=== PATIENT | female | born 1970 | race Caucasian/White ===

== ENCOUNTER 2019-06-09 09:14 | Outpatient (CLI) | payer MEDICARE ==
[2019-06-09] MEDS ORDERED: INSU100C SQ-INSULIN (09:48)
[2019-06-09] MEDS ORDERED: LISI1TAB19 PO (09:48)
[2019-06-09] MEDS ORDERED: BIOT10TA PO (09:48)
[2019-06-09] MEDS ORDERED: ATOR10TA9 PO (09:48)
[2019-06-09] MEDS ORDERED: FLUO40CA2 PO (09:48)
[2019-06-09] MEDS ORDERED: LANS15CA5 PO (09:48)
[2019-06-09 10:34] LABS: BASOPHILS # (AUTO) 0.07 x10^3/uL (0-0.1); BASOPHILS % (AUTO) 1 % (0-1); EOSINOPHILS # (AUTO) 0.39 x10^3/uL (0-0.4); EOSINOPHILS % (AUTO) 4 % (1-7); LYMPHOCYTES # (AUTO) 1.89 x10^3/uL (1-3.4); LYMPHOCYTES % (AUTO) 22 % (22-44); MD NO; MEAN CORPUSCULAR HEMOGLOBIN 32.6 pg (27.0-34.8); MEAN CORPUSCULAR HGB CONC 33.5 g/dL (32.4-35.8); MEAN CORPUSCULAR VOLUME 97.1 fL (80-100); MONOCYTES # (AUTO) 0.85 x10^3/uL (0.2-0.8); MONOCYTES % (AUTO) 10 % (2-9); NEUTROPHILS # (AUTO) 5.54 x10^3/uL (1.8-6.8); NEUTROPHILS % (AUTO) 63 % (42-75); PLATELET COUNT 307 x10^3/uL (130-400); RED BLOOD COUNT 4.37 x10^6/uL (3.82-5.3); RED CELL DISTRIBUTION WIDTH 13.8 % (9.6-15.2)
[2019-06-09 10:41] LABS: MICROSCOPIC NOT IND
[2019-06-09 10:44] LABS: INTERNATIONAL NORMALIZED RATIO 1.03 (0.93-1.1); PROTHROMBIN TIME 10.8 Seconds (9.6-11.5)
[2019-06-09 10:45] LABS: CULTURE INDICATED? NO
[2019-06-09 12:45] LABS: CHLORIDE 100 mmol/L (98-107)
[2019-06-09 12:57] LABS: ALANINE AMINOTRANSFERASE 17 U/L (12-78); ALBUMIN 3.8 g/dL (3.4-5.0); ALKALINE PHOSPHATASE 76 U/L (45-117); ANION GAP 6 mmol/L (5-15); BILIRUBIN,TOTAL 0.7 mg/dL (0.2-1.0); CALCIUM 8.5 mg/dL (8.5-10.1); CREATININE 1.04 mg/dL (0.55-1.02); TOTAL PROTEIN 7.4 g/dL (6.4-8.2)
[2019-06-14] MEDS ORDERED: IBUP200C8 PO (09:40)
[2019-06-16] MEDS ORDERED: METH4TAB2 PO (09:41)
[2019-06-16] MEDS ORDERED: METH750T87 PO (09:43)
[2019-06-16] MEDS ORDERED: OXYC5TAB2 PO (09:43)
== END 2019-06-09 23:59 | disposition home or self-care (01) ==
LOC: STAR 09:14
PROVIDERS: ATTEND Neurological Surgery
DX: Z01.818 Encounter for other preprocedural examination (principal); M48.02 Spinal stenosis, cervical region; M43.02 Spondylolysis, cervical region
CPT/HCPCS: 36415; 71046; 80053; 81003; 85025; 85610; 85730; 93005

== ENCOUNTER 2019-06-14 08:17 | Inpatient (IN) | payer MEDICARE ==
[~2019-06-14] VITALS: Ht 166.4 cm; Wt 82.3 kg
[2019-06-16 07:49] VITALS: BP 98/67
== END 2019-06-16 11:00 | disposition home or self-care (01) | DRG 471 ==
LOC: ORIP 08:17 → CCU 14:40 → 4NOR 06-15 12:02 → DCLOUNGE 06-16 10:49
PROVIDERS: ADMIT Neurological Surgery; ATTEND Neurological Surgery
PROC: 0RG20A0 Fusion of 2 or more Cervical Vertebral Joints with Interbody Fusion Device, Anterior Approach, Anterior Column, Open Approach (ICD-10-PCS; principal; 2019-06-14)
PROC: 00NW0ZZ Release Cervical Spinal Cord, Open Approach (ICD-10-PCS; 2019-06-14)
PROC: 0RB30ZZ Excision of Cervical Vertebral Disc, Open Approach (ICD-10-PCS; 2019-06-14)
PROC: 01N10ZZ Release Cervical Nerve, Open Approach (ICD-10-PCS; 2019-06-14)
PROC: 4A11X4G Monitoring of Peripheral Nervous Electrical Activity, Intraoperative, External Approach (ICD-10-PCS; 2019-06-14)
DX: M48.02 Spinal stenosis, cervical region (principal); E10.10 Type 1 diabetes mellitus with ketoacidosis without coma; G10 Huntington's disease; M47.22 Other spondylosis with radiculopathy, cervical region; M43.12 Spondylolisthesis, cervical region; I10 Essential (primary) hypertension; K21.9 Gastro-esophageal reflux disease without esophagitis; F41.9 Anxiety disorder, unspecified; F32.9 Major depressive disorder, single episode, unspecified; G43.909 Migraine, unspecified, not intractable, without status migrainosus; E78.5 Hyperlipidemia, unspecified
CPT/HCPCS: 36600; 72040; 80053; 80307; 81025; 82800; 82803; 82810; 82947; 82962; 84132; 85018; 85025; 87081; C1713; G0378; J0690; J1170; J1650; J2250; J2704; J3010; J8501; C1762; J1815; J2370; J3480; J7030; J7120